=== PATIENT | female | born 2000 | race Caucasian/White ===

== ENCOUNTER 2018-03-09 00:29 | Emergency (ER) | payer MEDICAID ==
[2018-03-09] MEDS ORDERED: IBUPROFEN 600 MG TABLET PO STA (00:45)
--- NOTE | 2018-03-09 00:48 | ED Physician Documentation ---
PD HPI UPPER EXT INJURY - Stated complaint Stated Complaint: RT SHOULDER/BICEP PX - Chief complaint Chief Complaint: Ext Problem - History obtained from History obtained from: Patient, Family - History of Present Illness Location: Right, Shoulder Type of injury: Twist Where injury occurred: Home Timing - onset: Today Timing - details: Abrupt onset, Still present Improved by: Rest, Immobilization Worsened by: Moving Associated symptoms: No: Weakness, Numbness, Tingling Contributing factors: No: Anticoagulated, Prior ortho surgery Similar symptoms before: Work up / diagnostics Recently seen: Not recently seen - Additonal information Additional information: Patient is a 18 year old female who is presenting to the emergency department for right sided shoulder pain. patient states that she was reaching up for something tonight and she felt of pop. patient states that she thinks she tore her labrum when she was younger. Patient still has full rom, but some pain with movement. Review of Systems Ten Systems: 10 systems reviewed and negative Skin: denies: Rash, Lesions, Abrasion (s), Laceration (s) Musculoskeletal: reports: Extremity pain, Joint pain. denies: Extremity swelling, Joint swelling Neurologic: denies: Numbness PD PAST MEDICAL HISTORY - Present Medications Home Medications: Ambulatory Orders Medication Instructions Recorded Confirmed No Known Home Medications [No 03/09/18 03/09/18 Known Home Medications] - Allergies Allergies/Adverse Reactions: Allergies Allergy/AdvReac Type Severity Reaction Status Date / Time amoxicillin Allergy Respiratory Verified 03/09/18 00:39 PD ED PE NORMAL - Vitals Vital signs reviewed: Yes - General General: Alert and oriented X 3, No acute distress - HEENT HEENT: Atraumatic - Cardiac Cardiac: RRR - Respiratory Respiratory: No respiratory distress - Abdomen Abdomen: Non distended - Derm Derm: Normal color, Warm and dry - Neuro Neuro: Alert and oriented X 3, No motor deficit, Normal speech Eye Opening: Spontaneous PD ED PE EXPANDED - Extremities Extremities: Right shoulder (mild tenderness to palpation, full rom, 5/5 strenght with flextion, extenision pronation and supination of right arm), Motor intact, Sensory intact, Vascular intact, Tendon intact Results - Vitals Vitals: Vital Signs - 24 hr 03/09/18 00:33 Temperature 36.6 C Heart Rate 100 Respiratory 16 Rate Blood Pressure 112/87 H O2 Saturation 99 Oxygen O2 Source Room air PD MEDICAL DECISION MAKING - ED course Complexity details: reviewed old records, re-evaluated patient, considered differential, d/w patient, d/w family ED course: Patient was seen and examined at bedside. patient had no trauma and had full rom of motion so no bony abnormality was suspected, therefore x-rays were not indicated. patient was treated with ice and ibuprofen and given a sling for comfort. patient required no further inpatient work up and was stable for [facility]. Departure - Departure Disposition: 01 Home, Self Care Clinical Impression: Right shoulder strain Condition: Good Instructions: ED Sprain Shoulder Follow-Up: Eduardo Posadas MD [Provider Admit Priv/Credential] - Comments: Your symptoms today are likely secondary to a strain/sprain of your shoulder. It is unlikely fractured or dislocated. You should ice your shoulder at least 4 times a day and alternate between motrin and tylenol as needed for pain. If your symptoms persist for more than the next week you should follow up with Dr. Posadas's office, or an orthopedic of your choice.
[2018-03-09 01:04] VITALS: BP 110/72
== END 2018-03-09 01:04 | disposition home or self-care (01) ==
LOC: ED 00:29
DX: S46.911A Strain of unspecified muscle, fascia and tendon at shoulder and upper arm level, right arm, initial encounter (principal); X50.1XXA Overexertion from prolonged static or awkward postures, initial encounter
CPT/HCPCS: 99283; A9270

== ENCOUNTER 2018-04-18 00:39 | Emergency (ER) | payer MEDICAID ==
[2018-04-18] MEDS ORDERED: METOCLOPRAMIDE 10 MG/2 ML VIAL IVP STA (00:49)
[2018-04-18] MEDS ORDERED: diphenhydrAMINE INJ 50 MG/ML VIAL IVP STA (00:49)
[2018-04-18] MEDS ORDERED: SODIUM CHLORIDE 0.9% 1,000 ML IV ONE ×2 (00:49→00:50)
--- NOTE | 2018-04-18 01:27 | ED Physician Documentation ---
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 patient states that she is able to drink fluids but food makes her throw up. Patient reports that when she stands up at times she gets dizzy. Review of Systems Constitutional: denies: Fever, Chills Eyes: reports: Reviewed and negative Ears: reports: Reviewed and negative GI: reports: Nausea, Vomiting. denies: Abdominal Pain, Constipation, Diarrhea : denies: Dysuria, Frequency, Discharge, Vaginal bleeding Neurologic: denies: Generalized weakness, Focal weakness, Syncope Immunocompromised: denies: Immunocompromised PD PAST MEDICAL HISTORY - Past Medical History Past Medical History: No Musculoskeletal: Other - Past Surgical History Past Surgical History: No - Present Medications Home Medications: Ambulatory Orders Medication Instructions Recorded Confirmed Doxylamine/Pyridoxine HCl 1 each PO TID #30 tablet. 04/18/18 [Karla Jones 10-10 mg Tablet] Prenatl Vit6/Iron/FA/B12/Ca/D3 1 tab PO DAILY 04/18/18 04/18/18 [Mteryti Combo Pack] - Allergies Allergies/Adverse Reactions: Allergies Allergy/AdvReac Type Severity Reaction Status Date / Time amoxicillin Allergy Respiratory Verified 04/18/18 00:45 - Social History Does the pt smoke?: No Smoking Status: Never smoker Does the pt drink ETOH?: No Does the pt have substance abuse?: No - Immunizations Immunizations are current?: Yes - POLST Patient has POLST: No PD ED PE NORMAL - Vitals Vital signs reviewed: Yes - General General: Alert and oriented X 3, No acute distress - HEENT HEENT: Atraumatic, Moist mucous membranes - Cardiac Cardiac: RRR, No murmur - Respiratory Respiratory: No respiratory distress - Abdomen Abdomen: Non tender, Non distended - Derm Derm: Normal color, Warm and dry, No rash - Extremities Extremities: No deformity - Neuro Neuro: Alert and oriented X 3 Eye Opening: Spontaneous - Psych Psych: Normal mood Results - Vitals Vitals: Vital Signs - 24 hr 04/18/18 04/18/18 00:40 01:53 Temperature 35.9 C L Heart Rate 91 87 Respiratory 18 16 Rate Blood Pressure 109/71 110/70 O2 Saturation 100 100 Oxygen O2 Source Room air - Labs Labs: Laboratory Tests 04/18/18 01:15 Urine Color YELLOW Urine Clarity CLEAR Urine pH 6.0 Ur Specific [place] >=1.030 H Urine Protein TRACE Urine Glucose (UA) NEGATIVE Urine Ketones >=80 H Urine Occult Blood NEGATIVE Urine Nitrite NEGATIVE Urine Bilirubin NEGATIVE Urine Urobilinogen 1 (NORMAL) Ur Leukocyte Esterase NEGATIVE Ur Microscopic Review NOT INDICATED Urine Culture Comments NOT INDICATED Urine HCG, Qual POSITIVE PD MEDICAL DECISION MAKING - ED course Complexity details: reviewed old records, reviewed results, re-evaluated patient , considered differential, d/w patient ED course: Patient was seen and examined at bedside. patient was well appearing and in no acute distress. patient was offered IV fluids but refused. Patient was given oral hydration which she tolerated without difficulty. patient's urine was collected and sent. patient's diagnostics were consistent with mild dehydration but patient did not want IV hydration. Patient was tolerating PO without difficulty. patient required no further work up and was stable for discharge with outpatient follow up. Departure - Departure Disposition: 01 Home, Self Care Clinical Impression: Vomiting affecting Condition: Good Instructions: ED Preg Morning Sickness Follow-Up: Kay Rivas ARNP [Primary Care Provider] - Prescriptions: Doxylamine/Pyridoxine HCl [Karla Jones 10-10 mg Tablet] 1 each PO TID #30 tablet. Comments: Your symptoms today are being caused by dehydration. it is important that you increase your fluid intake. You should supplement the water with gatorade, pedialyte or other electrolyte solution. You should follow up with your doctor for further evaluation and care. You may return to the emergency department at any time for new, worsening or uncontrollable symptoms. Discharge Date/Time: 04/18/18 01:54
[2018-04-18 01:30] LABS: GLUCOSE, URINE (UA) NEGATIVE (NEGATIVE); KETONES,URINE (UA) >=80 mg/dL (NEGATIVE); LEUKOCYTE ESTERASE, URINE NEGATIVE (NEGATIVE); NITRITE,URINE NEGATIVE (NEGATIVE); OCCULT BLOOD,URINE NEGATIVE (NEGATIVE); PROTEIN,URINE TRACE mg/dL (NEGATIVE); UROBILINOGEN,URINE 1 (NORMAL) E.U./dL (NORMAL)
[2018-04-18 01:43] LABS: BILIRUBIN,URINE NEGATIVE (NEGATIVE); CLARITY,URINE CLEAR (CLEAR); HCG UR QUAL POSITIVE; ICTOTEST,URINE NEGATIVE
[2018-04-18 01:54] VITALS: BP 110/70
== END 2018-04-18 01:54 | disposition home or self-care (01) ==
LOC: ED 00:39
DX: O21.0 Mild hyperemesis gravidarum (principal); O99.281 Endocrine, nutritional and metabolic diseases complicating pregnancy, first trimester; E86.0 Dehydration; Z3A.09 9 weeks gestation of pregnancy
CPT/HCPCS: 81001; 81003; 81025; 87086; 99283

== ENCOUNTER 2018-08-17 18:29 | Emergency (ER) | payer MEDICAID ==
[2018-08-17] MEDS ORDERED: IBUPROFEN 600 MG TABLET PO STA (19:36)
[2018-08-17] MEDS ORDERED: ONDANSETRON ODT 4 MG TABLET TL STA (19:36)
[2018-08-17] MEDS ORDERED: LOPERAMIDE 2 MG CAPSULE PO STA (19:36)
[2018-08-17 19:37] LABS: BILIRUBIN,URINE NEGATIVE (NEGATIVE); GLUCOSE, URINE (UA) NEGATIVE (NEGATIVE); KETONES,URINE (UA) TRACE mg/dL (NEGATIVE); LEUKOCYTE ESTERASE, URINE NEGATIVE (NEGATIVE); NITRITE,URINE NEGATIVE (NEGATIVE); OCCULT BLOOD,URINE NEGATIVE (NEGATIVE); PROTEIN,URINE NEGATIVE (NEGATIVE); UROBILINOGEN,URINE 0.2 (NORMAL) E.U./dL (NORMAL)
--- NOTE | 2018-08-17 19:38 | ED Physician Documentation ---
PD HPI ABD PAIN - Stated complaint Stated Complaint: SOA/CHILLS - Chief complaint Chief Complaint: Abd Pain - History obtained from History obtained from: Patient - History of Present Illness Timing - onset: Today (She pretty abruptly became ill with nausea sweats vomiting and diarrhea today and chills. Her fianc was recently ill with a diarrheal illness. No measured fevers and no recent travel. 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 denies: Fever Nose: denies: Rhinorrhea / runny nose Throat: denies: Sore throat GI: reports: Abdominal Pain, Nausea, Vomiting, Diarrhea PD PAST MEDICAL HISTORY - Past Medical History Musculoskeletal: Other - Past Surgical History Past Surgical History: No - Present Medications Home Medications: Ambulatory Orders Medication Instructions Recorded Confirmed Loperamide [Imodium] 2 mg PO QID PRN #10 capsule 08/17/18 Ondansetron Odt [Zofran] 4 mg TL Q6H PRN #10 tablet 08/17/18 - Allergies Allergies/Adverse Reactions: Allergies Allergy/AdvReac Type Severity Reaction Status Date / Time amoxicillin Allergy Respiratory Verified 08/17/18 18:50 - Social History Does the pt smoke?: No Smoking Status: Never smoker Does the pt drink ETOH?: No Does the pt have substance abuse?: No - Immunizations Immunizations are current?: Yes - POLST Patient has POLST: No PD ED PE NORMAL - Vitals Vital signs reviewed: Yes - General General: Alert and oriented X 3, No acute distress - HEENT HEENT: Pharynx benign - Neck Neck: Supple, no meningeal sign, No bony TTP - Cardiac Cardiac: RRR, No murmur - Respiratory Respiratory: No respiratory distress, Clear bilaterally - Abdomen Abdomen: Normal bowel sounds, Soft, Non tender - Back Back: No CVA TTP - Derm Derm: No rash - Neuro Neuro: Alert and oriented X 3, Normal speech Results - Vitals Vitals: Vital Signs - 24 hr 08/17/18 18:45 Temperature 36.6 C Heart Rate 89 Respiratory 16 Rate Blood Pressure 116/72 O2 Saturation 100 Oxygen O2 Source Room air - Labs Labs: Laboratory Tests 08/17/18 19:25 Urine Color YELLOW Urine Clarity CLEAR Urine pH 6.0 Ur Specific [place] >=1.030 H Urine Protein NEGATIVE Urine Glucose (UA) NEGATIVE Urine Ketones TRACE Urine Occult Blood NEGATIVE Urine Nitrite NEGATIVE Urine Bilirubin NEGATIVE Urine Urobilinogen 0.2 (NORMAL) Ur Leukocyte Esterase NEGATIVE Ur Microscopic Review NOT INDICATED Urine Culture Comments NOT INDICATED Urine HCG, Qual NEGATIVE PD MEDICAL DECISION MAKING - ED course ED course: 18-year-old with relatively acute illness that sounds like gastroenteritis with chills, abdominal pain but benign exam, nausea and diarrhea. She is treated with Zofran, Imodium, and ibuprofen. - Sepsis Event Vital Signs: Vital Signs - 24 hr 08/17/18 18:45 Temperature 36.6 C Heart Rate 89 Respiratory 16 Rate Blood Pressure 116/72 O2 Saturation 100 Oxygen O2 Source Room air Departure - Departure Disposition: Home, Self Care Clinical Impression: Gastroenteritis Vomiting Qualifiers: Vomiting type: unspecified Vomiting Intractability: non-intractable Nausea presence: with nausea Qualified Code(s): R11.2 - Nausea with vomiting, unspecified Diarrhea Qualifiers: Diarrhea type: presumed infectious Qualified Code(s): R19.7 - Diarrhea, unspecified Condition: Good Record reviewed to determine appropriate education?: Yes Instructions: ED Gastroenteritis Viral Prescriptions: Loperamide [Imodium] 2 mg PO QID PRN #10 capsule PRN Reason: Diarrhea Ondansetron Odt [Zofran] 4 mg TL Q6H PRN #10 tablet PRN Reason: Nausea / Vomiting Comments: If not better in 12-24 hours or if pain moves to the bottom right of your abdomen please return for reevaluation. Forms: Activity restrictions
[2018-08-17 19:49] LABS: CLARITY,URINE CLEAR (CLEAR); HCG UR QUAL NEGATIVE
[2018-08-17 20:06] VITALS: BP 121/64
== END 2018-08-17 20:08 | disposition home or self-care (01) ==
LOC: ED 18:29
DX: K52.9 Noninfective gastroenteritis and colitis, unspecified (principal); Z88.1 Allergy status to other antibiotic agents
CPT/HCPCS: 81003; 81025; 99283; A9270; Q0162; 81001; 87086

== ENCOUNTER 2020-08-29 04:20 | Emergency (ER) | payer MEDICAID ==
--- NOTE | 2020-08-29 04:31 | ED Physician Documentation ---
PD HPI ABD PAIN - Stated complaint Stated Complaint: ABD PX - History obtained from History obtained from: Patient - History of Present Illness Timing - onset: Yesterday Timing - details: Gradual onset, Intermittant, Waxing and waning Pain level now: 0 Quality: Cramping Location: Other ("like a band across my lower abdomen" (per patient)) Improved by: Other (nothing) Worsened by: Other (no exacerbating factors) Associated symptoms: Nausea. No: Fever, Vomiting, Diarrhea, Constipation, Vaginal bleeding, Vaginal dc Similar symptoms before: Has not had sx before Recently seen: Not recently seen - Additional information Additional information: c/o episodic cramping pain "like a band around my lower abdomen" since yesterday morning. Nausea but no vomiting. She says it feels like labor pains she has had with previous , but she says she is not ; she says she takes BCP and that she has been having mostly regular, monthly periods with LMP 08/04/2020 Review of Systems Constitutional: reports: Reviewed and negative Cardiac: reports: Reviewed and negative Respiratory: reports: Reviewed and negative GI: reports: Abdominal Pain, Nausea. denies: Vomiting, Constipation, Diarrhea : reports: Frequency. denies: Dysuria, Now EGA Musculoskeletal: denies: Back pain PD PAST MEDICAL HISTORY - Past Medical History Past Medical History: No Musculoskeletal: Other - Past Surgical History Past Surgical History: No - Present Medications Home Medications: Ambulatory Orders Medication Instructions Recorded Confirmed Loperamide [Imodium] 2 mg PO QID PRN #10 capsule 08/17/18 Ondansetron Odt [Zofran] 4 mg TL Q6H PRN #10 tablet 08/17/18 - Allergies Allergies/Adverse Reactions: Allergies Allergy/AdvReac Type Severity Reaction Status Date / Time amoxicillin Allergy Respiratory Verified 08/29/20 04:32 - Social History Does the pt smoke?: No Smoking Status: Never smoker Does the pt drink ETOH?: No Does the pt have substance abuse?: No - Immunizations Immunizations are current?: Yes - POLST Patient has POLST: No PD ED PE NORMAL - Vitals Vital signs reviewed: Yes - General General: Alert and oriented X 3, No acute distress, Well developed/nourished - HEENT HEENT: Moist mucous membranes - Neck Neck: Supple, no meningeal sign - Cardiac Cardiac: RRR, No murmur - Respiratory Respiratory: No respiratory distress, Clear bilaterally - Abdomen Abdomen: Soft, Non tender - Back Back: No CVA TTP - Derm Derm: Normal color, Warm and dry - Extremities Extremities: No edema PD ED PE EXPANDED - Abdomen Abdomen: Other (distention with palpable, firm, nontender mass from pelvis to above umbilicus s/o advanced (third trimester) ) Results - Vitals Vitals: Vital Signs - 24 hr 08/29/20 08/29/20 08/29/20 04:30 04:53 05:35 Temperature 36.6 C Heart Rate 95 96 97 Respiratory 16 16 16 Rate Blood Pressure 130/96 H 114/86 H 122/103 H O2 Saturation 98 98 99 08/29/20 05:55 Temperature Heart Rate 84 Respiratory 18 Rate Blood Pressure 106/74 O2 Saturation 99 Oxygen O2 Source Room air - Labs Labs: Laboratory Tests 08/29/20 08/29/20 04:20 04:20 Urine Color YELLOW Urine Clarity CLEAR Urine pH 7.0 Ur Specific [place] 1.020 1.020 Urine Protein NEGATIVE Urine Glucose (UA) NEGATIVE Urine Ketones 40 H Urine Occult Blood SMALL H Urine Nitrite NEGATIVE Urine Bilirubin NEGATIVE Urine Urobilinogen 0.2 (NORMAL) Ur Leukocyte Esterase TRACE H Urine RBC 6-10 H Urine WBC 4-5 Ur Squamous Epith Cells MANY Squamous H Urine Bacteria Rare Ur Microscopic Review INDICATED Urine Culture Comments NOT INDICATED Urine HCG, Qual POSITIVE - Rads (name of study) pelvic US Radiology: Prelim report reviewed, See rad report PD MEDICAL DECISION MAKING - ED course Complexity details: reviewed results, re-evaluated patient, considered differential, d/w patient ED course: Patient arrives c/o lower abdominal cramping pain that are similar to labor pains she had with previous delivery, but strongly denies . She says she is sexually active but that she takes oral BCP and has been having monthly periods, most recently 08/04/2020. She is found to be approximately 38 weeks on bedside US and thus transferred to +D after I discussed the case with Dr. Garcia Departure - Departure Disposition: ED Transfer to [facility] Clinical Impression: Active labor at term Condition: Good Discharge Date/Time: 08/29/20 05:55
[2020-08-29 04:42] LABS: BILIRUBIN,URINE NEGATIVE (NEGATIVE); CLARITY,URINE CLEAR (CLEAR); GLUCOSE, URINE (UA) NEGATIVE (NEGATIVE); KETONES,URINE (UA) 40 mg/dL (NEGATIVE); LEUKOCYTE ESTERASE, URINE TRACE (NEGATIVE); NITRITE,URINE NEGATIVE (NEGATIVE); OCCULT BLOOD,URINE SMALL (NEGATIVE); PROTEIN,URINE NEGATIVE (NEGATIVE); UROBILINOGEN,URINE 0.2 (NORMAL) E.U./dL (NORMAL)
[2020-08-29 04:43] LABS: HCG UR QUAL POSITIVE
[2020-08-29 04:50] LABS: BACTERIA,URINE Rare /HPF (None Seen); SQUAMOUS EPITHELIAL CELL,UR MANY Squamous (<= Few)
[2020-08-29 06:17] VITALS: BP 106/74
--- NOTE | 2020-08-29 10:55 | Ultrasound Report ---
PROCEDURE: OB 14+ Weeks INDICATIONS: , abdominal cramping OUTSIDE/PRIOR DATING DATA: Last menstrual period (LMP): Unknown. TECHNIQUE: Real-time scanning was performed of the fetus, with image documentation and biometric measurements. COMPARISON: None. FINDINGS: General: A single living intrauterine gestation is present. Presentation: Cephalic Placenta: Placental position is anterior, without previa. Amniotic fluid index: 1.6 cm, low for gestational age. heart rate: 119 beats per minute. biometrics: Biparietal diameter: 8.8 cm corresponding to an estimated gestational age of 36 weeks 0 days Head circumference: 32.4 cm corresponding to an estimated gestational age of 36 weeks 5 days. Abdominal circumference: 33.9 cm corresponding to an estimated gestational age of 37 weeks 6 days. Femur length: 7.7 cm corresponding to an estimated gestational age of 39 weeks 2 days. Estimated gestational age from initial scan: not applicable. Composite gestational age from present scan: 37 weeks 3 days Estimated weight: 3319 g Anatomic survey: Neuro: Ventricles are non-dilated at less than 10 mm. Cisterna magna is normal at 3-11 mm. Cerebel lum is normal in size and morphology. Nuchal skin fold: Normal at less than 6 mm between 14-20 weeks gestational age. Face: Nose and lips, facial profile are normal. Spine: No evidence for spina bifida. Heart: 4-chambered heart is present, with normal ventricular outflow tracts. Diaphragm: Diaphragm is intact. Stomach: Left-sided stomach is present. Kidneys: No hydronephrosis. Normal is less than 5 mm in 2nd trimester, less than 7 mm in 3rd trimester. Cord: 3-vessel cord has orthotopic insertion. Bladder: Normal in size. Extremities: All 4 extremities identified. IMPRESSION: 1. Marked oligohydramnios with amniotic fluid index of 1.6 cm. 2. heart rate of 119 bpm. 3. Estimated weight of 3319 g. No significant discrepancy between preliminary and final report. Reviewed by: Charles Sahu on 08/29/2020 9:54 AM DENEEN Approved by: Charles Sahu on 08/29/2020 9:54 AM DENEEN Station ID: [id number]
== END 2020-08-29 05:55 | disposition home or self-care (01) ==
LOC: ED 04:20
DX: O75.82 Onset (spontaneous) of labor after 37 completed weeks of gestation but before 39 completed weeks gestation, with delivery by (planned) cesarean section (principal); Z3A.38 38 weeks gestation of pregnancy
CPT/HCPCS: 76805; 80053; 81001; 81003; 81025; 83690; 84703; 85025; 87086; 99284

== ENCOUNTER 2020-08-29 05:34 | Inpatient (IN) | payer MEDICAID ==
[2020-08-29 06:26] LABS: RUPTURE OF MEMBRANES PLUS NEGATIVE (NEGATIVE)
[2020-08-29] MEDS ORDERED: OXYTOCIN/SODIUM CHLORIDE 500 ML IV PRN ×3 (07:29→15:08)
[2020-08-29] MEDS ORDERED: OXYTOCIN 10 UNIT/ML VIAL IM PRN (07:29)
[2020-08-29] MEDS ORDERED: LIDOCAINE-MPF 1% 30 ML VIAL ID PRN (07:29)
[2020-08-29] MEDS ORDERED: CARBOPROST TROMETHAMINE 250 MCG/ML AMP IM PRN (07:29)
[2020-08-29] MEDS ORDERED: TRANEXAMIC ACID 1,000 MG in SODIUM CHLORIDE 0.9% 100ML 100 ML IV PRN (07:29)
[2020-08-29] MEDS ORDERED: METHYLERGONOVINE 0.2 MG/ML VIAL IM PRN (07:29)
[2020-08-29] MEDS ORDERED: miSOPROStoL 200 MCG TABLET BC PRN (07:29)
[2020-08-29] MEDS ORDERED: fentaNYL 100 MCG/2 ML VIAL IVP PRN (07:39)
--- NOTE | 2020-08-29 07:56 | HISTORY & PHYSICAL EXAMINATION ---
History of Present Illness - History of Present Illness HPI Comment/Other: CC: "contractions" HPI: didn't know she was , had significant cramping pain that she came into the ER with, described quality like contractions. ROS: no fever, no leaking of water, no VB PMH: chronic ZAPATA. Needle phobia. PSH: neg SH: no tobacco or drug use. Drank total of 3 alcoholic beverages this . Lives with parents and son, feels safe at home. 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 OB: . Prior at term 3y ago, uncomplicated. Medical TAB x1. FH: no malignant hyperthermia Meds: excedrine one pill 3x per week. No MVI. Allergies: amoxicillin-->unknown reaction in childhood O: AVSS Alert, tearful, anxious, grimacing with contractions Head atraumatic normocephalic EOM intact Lungs CTA bilat Cor RRR 2/6 flow murmur Abd soft, nt/nd, gravid No LE c/c/e Neuro and MSK: gait intact 8cm/+2 station with RN Category 1 NST [place] q2-4min A/P: 20yo at 37w by a femur length today with active spontaneous labor. She didn't know that she was until a few hours ago. Coping well with labor, anticipate routine labor and delivery course, will give fentanyl for pain control. GBS unknown and possible baby. Ampicillin caused unknown reaction in childhood. Will give Ancef. No care: obtain NOB labs and Utox. Considering adoption: she opts not to have baby with her in the room post delivery. She may see her baby at anytime. She would like to discuss with FOB who is not here and not answering his phone. Patient receiving lots of emotional support from our team here. Social work consult. Fetus: vertex, reassuring tracing. Full biometry not possible due to her head descent and oligohydramnios. Consider the potential for pulmonary or renal problems in baby with the oligo + chronic NSAID use (one excedrine per day, 3x per week). Will have peds at delivery. History - Past Medical History Cardiovascular: reports: None Respiratory: reports: None Neuro: reports: None Endocrine/Autoimmune: reports: None GI: reports: None CANDY DIPPER HAND: reports: None : reports: None HEENT: reports: None Psych: reports: None Musculoskeletal: reports: Other Derm: reports: None MRSA Hx?: No - POLST Patient has POLST: No Meds/Allgy - Home Medications Home Medications: Ambulatory Orders Medication Instructions Recorded Confirmed Loperamide [Imodium] 2 mg PO QID PRN #10 capsule 08/17/18 Ondansetron Odt [Zofran] 4 mg TL Q6H PRN #10 tablet 08/17/18 - Allergies Allergies/Adverse Reactions: Allergies Allergy/AdvReac Type Severity Reaction Status Date / Time amoxicillin Allergy Respiratory Verified 08/29/20 04:32
[2020-08-29 07:57] LABS: BASOPHILS # (AUTO) 0.1 10^3/uL (0.0-0.1); BASOPHILS % (AUTO) 0.4 %; EOSINOPHILS # (AUTO) 0.1 10^3/uL (0.0-0.7); EOSINOPHILS % (AUTO) 0.4 %; HGB - HEMOGLOBIN 13.2 g/dL (12.0-16.0); LYMPHOCYTES # (AUTO) 2.1 10^3/uL (1.5-3.5); LYMPHOCYTES % (AUTO) 14.5 %; MEAN CORPUSCULAR HEMOGLOBIN 28.2 pg (27.0-31.0); MEAN CORPUSCULAR VOLUME 85.5 fL (81.0-99.0); MEAN PLATELET VOLUME 11.6 fL (7.9-10.8); MONOCYTES # (AUTO) 0.7 10^3/uL (0.0-1.0); MONOCYTES % (AUTO) 4.9 %; NEUTROPHILS # (AUTO) 11.1 10^3/uL (1.5-6.6); NEUTROPHILS % (AUTO) 78.3 %; PLT - PLATELET COUNT 226 10^3/uL (130-450); RED BLOOD COUNT 4.68 10^6/uL (4.20-5.40); RED CELL DISTRIBUTION WIDTH 13.7 % (12.0-15.0); WHITE BLOOD COUNT 14.2 x10^3/uL (4.8-10.8)
[2020-08-29] MEDS ORDERED: LACTATED RINGERS 1,000 ML IV SCH (08:00)
[2020-08-29] MEDS ORDERED: ceFAZolin 2 GM in SODIUM CHLORIDE 0.9% 100ML 100 ML IV ONE (08:00)
[2020-08-29 08:17] LABS: MUDS CUTOFF CONCENTRATIONS CUTOFF CONC BELOW:
[2020-08-29 08:25] LABS: BILIRUBIN,URINE NEGATIVE (NEGATIVE); GLUCOSE, URINE (UA) NEGATIVE (NEGATIVE); KETONES,URINE (UA) >=80 mg/dL (NEGATIVE); LEUKOCYTE ESTERASE, URINE NEGATIVE (NEGATIVE); NITRITE,URINE NEGATIVE (NEGATIVE); OCCULT BLOOD,URINE NEGATIVE (NEGATIVE); PROTEIN,URINE NEGATIVE (NEGATIVE); UROBILINOGEN,URINE 0.2 (NORMAL) E.U./dL (NORMAL)
--- NOTE | 2020-08-29 08:25 | PROVIDER PROGRESS NOTE ---
Objective - Vital Signs/Intake & Output Vital Signs: Vital Signs x48h Temp Pulse Resp BP Pulse Ox 08/29/20 06:30 99.1 F 92 18 99/70 98 08/29/20 05:53 99.1 F 92 18 98 - Lab Results Fish Bones: 08/29/20 07:40 Other Labs: Lab Results x24hrs 08/29/20 08/29/20 Range/Units 07:40 05:57 WBC 14.2 H (4.8-10.8) x10^3/uL RBC 4.68 (4.20-5.40) 10^6/uL Hgb 13.2 (12.0-16.0) g/dL Hct 40.0 (37.0-47.0) % MCV 85.5 (81.0-99.0) fL MCH 28.2 (27.0-31.0) pg MCHC 33.0 (32.0-36.0) g/dL RDW 13.7 (12.0-15.0) % Plt Count 226 (130-450) 10^3/uL MPV 11.6 H (7.9-10.8) fL Neut # (Auto) 11.1 H (1.5-6.6) 10^3/uL Lymph # (Auto) 2.1 (1.5-3.5) 10^3/uL [place] # (Auto) 0.7 (0.0-1.0) 10^3/uL Eos # (Auto) 0.1 (0.0-0.7) 10^3/uL Baso # (Auto) 0.1 (0.0-0.1) 10^3/uL Absolute Nucleated RBC 0.00 x10^3/uL Nucleated RBC % 0.0 /100WBC Membranes Rupture NEGATIVE (NEGATIVE)
[2020-08-29 08:31] LABS: AMPHETAMINE SCREEN,URINE NEGATIVE (NEGATIVE); BENZODIAZEPINES SCREEN, URINE NEGATIVE (NEGATIVE); CLARITY,URINE CLEAR (CLEAR); COCAINE SCREEN URINE NEGATIVE (NEGATIVE); METHADONE SCREEN, URINE NEGATIVE (NEGATIVE); METHAMPHETAMINES SCREEN, URINE NEGATIVE (NEGATIVE); OPIATE SCREEN, URINE NEGATIVE (NEGATIVE); OXYCODONE SCREEN, URINE NEGATIVE (NEGATIVE); PROPOXYPHENE SCREEN, URINE NEGATIVE (NEGATIVE); TRICYCLIC ANTIDEPRESSANT,URINE NEGATIVE (NEGATIVE)
[2020-08-29] MEDS ORDERED: SODIUM CHLORIDE FLUSH 0.9% 10 ML SYRINGE IVP SCH (09:00)
[2020-08-29] MEDS: SODIUM CHLORIDE FLUSH 0.9% 10 ML SYRINGE IVP PRN ×2 (09:04→15:23)
--- NOTE | 2020-08-29 09:32 | PROVIDER PROGRESS NOTE ---
Subjective - Subjective Subjective: Spoke with FOB, they would like to adopt out. Has decided not to see/hold, not to know gender. Normal CBC, Rh+, Utox neg SVE 9cm, contractions irregular, will start pitocin for augmentation. Anticipate . Peds aware. Social work in room. Objective - Vital Signs/Intake & Output Vital Signs: Vital Signs x48h Temp Pulse Resp BP Pulse Ox 08/29/20 06:30 99.1 F 92 18 99/70 98 08/29/20 05:53 99.1 F 92 18 9970 98 - Lab Results Fish Bones: 08/29/20 07:40 Other Labs: Lab Results x24hrs 08/29/20 08/29/20 08/29/20 Range/Units 07:40 07:40 06:11 WBC 14.2 H (4.8-10.8) x10^3/uL RBC 4.68 (4.20-5.40) 10^6/uL Hgb 13.2 (12.0-16.0) g/dL Hct 40.0 (37.0-47.0) % MCV 85.5 (81.0-99.0) fL MCH 28.2 (27.0-31.0) pg MCHC 33.0 (32.0-36.0) g/dL RDW 13.7 (12.0-15.0) % Plt Count 226 (130-450) 10^3/uL MPV 11.6 H (7.9-10.8) fL Neut # (Auto) 11.1 H (1.5-6.6) 10^3/uL Lymph # (Auto) 2.1 (1.5-3.5) 10^3/uL [place] # (Auto) 0.7 (0.0-1.0) 10^3/uL Eos # (Auto) 0.1 (0.0-0.7) 10^3/uL Baso # (Auto) 0.1 (0.0-0.1) 10^3/uL Absolute Nucleated RBC 0.00 x10^3/uL Nucleated RBC % 0.0 /100WBC Urine Color YELLOW Urine Clarity CLEAR (CLEAR) Urine pH 6.0 (5.0-7.5) PH Ur Specific [place] 1.020 (1.002-1.030) Urine Protein NEGATIVE (NEGATIVE) mg/dL Urine Glucose (UA) NEGATIVE (NEGATIVE) mg/dL Urine Ketones >=80 H (NEGATIVE) mg/dL Urine Occult Blood NEGATIVE (NEGATIVE) Urine Nitrite NEGATIVE (NEGATIVE) Urine Bilirubin NEGATIVE (NEGATIVE) Urine Urobilinogen 0.2 (NORMAL) (NORMAL) E.U./dL Ur Leukocyte Esterase NEGATIVE (NEGATIVE) Ur Microscopic Review NOT INDICATED Urine Culture Comments NOT INDICATED Membranes Rupture (NEGATIVE) Urine Opiates Screen (NEGATIVE) Ur Oxycodone Screen (NEGATIVE) Urine Methadone Screen (NEGATIVE) Ur Propoxyphene Screen (NEGATIVE) Ur Barbiturates Screen (NEGATIVE) Ur Tricyclics Screen (NEGATIVE) Ur Phencyclidine Scrn (NEGATIVE) Ur Amphetamine Screen (NEGATIVE) U Methamphetamines Scrn (NEGATIVE) U Benzodiazepines Scrn (NEGATIVE) Urine Cocaine Screen (NEGATIVE) U Cannabinoids Screen (NEGATIVE) Blood Type A POSITIVE Antibody Screen NEGATIVE 08/29/20 08/29/20 Range/Units 06:11 05:57 WBC (4.8-10.8) x10^3/uL RBC (4.20-5.40) 10^6/uL Hgb (12.0-16.0) g/dL Hct (37.0-47.0) % MCV (81.0-99.0) fL MCH (27.0-31.0) pg MCHC (32.0-36.0) g/dL RDW (12.0-15.0) % Plt Count (130-450) 10^3/uL MPV (7.9-10.8) fL Neut # (Auto) (1.5-6.6) 10^3/uL Lymph # (Auto) (1.5-3.5) 10^3/uL [place] # (Auto) (0.0-1.0) 10^3/uL Eos # (Auto) (0.0-0.7) 10^3/uL Baso # (Auto) (0.0-0.1) 10^3/uL Absolute Nucleated RBC x10^3/uL Nucleated RBC % /100WBC Urine Color Urine Clarity (CLEAR) Urine pH (5.0-7.5) PH Ur Specific [place] (1.002-1.030) Urine Protein (NEGATIVE) mg/dL Urine Glucose (UA) (NEGATIVE) mg/dL Urine Ketones (NEGATIVE) mg/dL Urine Occult Blood (NEGATIVE) Urine Nitrite (NEGATIVE) Urine Bilirubin (NEGATIVE) Urine Urobilinogen (NORMAL) E.U./dL Ur Leukocyte Esterase (NEGATIVE) Ur Microscopic Review Urine Culture Comments Membranes Rupture NEGATIVE (NEGATIVE) Urine Opiates Screen NEGATIVE (NEGATIVE) Ur Oxycodone Screen NEGATIVE (NEGATIVE) Urine Methadone Screen NEGATIVE (NEGATIVE) Ur Propoxyphene Screen NEGATIVE (NEGATIVE) Ur Barbiturates Screen NEGATIVE (NEGATIVE) Ur Tricyclics Screen NEGATIVE (NEGATIVE) Ur Phencyclidine Scrn NEGATIVE (NEGATIVE) Ur Amphetamine Screen NEGATIVE (NEGATIVE) U Methamphetamines Scrn NEGATIVE (NEGATIVE) U Benzodiazepines Scrn NEGATIVE (NEGATIVE) Urine Cocaine Screen NEGATIVE (NEGATIVE) U Cannabinoids Screen NEGATIVE (NEGATIVE) Blood Type Antibody Screen
[2020-08-29] MEDS ORDERED: OXYTOCIN/SODIUM CHLORIDE 500 ML IV SCH (10:00)
[2020-08-29] MEDS ORDERED: diphenhydrAMINE 25 MG CAPSULE PO PRN (10:20)
[2020-08-29] MEDS ORDERED: WITCH HAZEL/GLYCERIN 1 PAD TOP PRN (10:20)
[2020-08-29] MEDS ORDERED: ONDANSETRON ODT 4 MG TABLET TL PRN (10:20)
[2020-08-29] MEDS ORDERED: HYDROCORTISONE 1% CREAM 28 GM TUBE PR PRN (10:20)
--- NOTE | 2020-08-29 10:25 | DELIVERY NOTE ---
Delivery Note - Labor Labor: positive: Spontaneous - Delivery Method Delivery Method: positive: Spontaneous vaginal delivery - Presentation Presentation: positive: Vertex - Nuchal Cord Nuchal Cord: positive: None - Amniotic Fluid Description Amniotic Fluid Description: positive: Clear - Episiotomy Type Episiotomy Type: positive: None - Laceration Laceration: positive: None - Delivery Outcome Delivery Outcome: positive: Livebirth - sex: positive: Male - Cord Cord: positive: 3 vessels - Placenta Placenta: positive: Intact, Spontaneous - Estimated Blood Loss Estimated Blood Loss (in cc): 250 - Post Delivery Events Post Delivery Events: positive: Other (Planning to adopt baby out. Patient did not see baby, wanted to know gender. Baby brought to nursery for transition assessment and ongoing care.) - Delivery Comments (Free Text/Narrative) Delivery Comments (Free Text/Narrative): didn't know she was until she arrived in the ER with abdominal pain a few hours prior to delivery. Was composed and thoughtful throughout her labor. Social work involved as she and her partner are wanting to adopt out. Possible discharge at 8h if stable.
[2020-08-29] MEDS: KETOROLAC 30 MG/ML VIAL IVP PRN ×2 (10:41→17:30)
[2020-08-29] MEDS: ACETAMINOPHEN 500 MG TABLET PO SCH ×2 (10:41→19:50)
[2020-08-29] MEDS: DOCUSATE SODIUM 100 MG CAPSULE PO SCH ×2 (10:41→21:44)
--- NOTE | 2020-08-29 14:54 | Discharge Plan ---
Discharge Plan Problem Reviewed?: Yes Disposition: Home, Self Care Condition: Good Diet: Regular Activity Restrictions: Nothing in the vagina Shower Restrictions: No No Smoking: If you smoke, Please STOP! Call for help. Follow-up with: Lou Garcia MD [Provider Admit Priv/Credential] - (This Monday at 0845--MD will arrange appointment)
[2020-08-29] MEDS ORDERED: METHYLERGONOVINE 0.2 MG/ML VIAL IM STA (14:59)
[2020-08-29] MEDS ORDERED: fentaNYL 100 MCG/2 ML VIAL IVP STA (15:16)
[2020-08-29 20:23] LABS: TRICHOMONAS VAGINALIS DNA NEGATIVE (NEGATIVE)
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
[2020-08-29 22:43] VITALS: BP 124/80
--- NOTE | 2020-08-29 23:42 | Labor Flowsheet ---
Labor Flowsheet Datetime Report Generated by CPN: 08/29/2020 23:42 Datetime: 08/29/2020 22:19 VITAL SIGNS NBP Sys/Marianne/Mean (mmHg): 124 : 80 : 89 Pulse: 92 SpO2 (%): 100 Datetime: 08/29/2020 11:45 Pain Presence: Intermittent Pain Type: Cramping Pain Location: Abdomen Datetime: 08/29/2020 11:30 PAIN Pain Scale: 5 Datetime: 08/29/2020 09:59 Respirations: 20 Temperature (C): 37.2 Datetime: 08/29/2020 09:53 Stage of : Recovery Datetime: 08/29/2020 09:45 UTERINE ACTIVITY Monitor Mode: External Frequency (min): 1.5-2 Quality: Strong Resting Tone (Palpate): Relaxed Contraction Comments: Pushing contractions ASSESSMENT A Monitor Mode: Telemetry FHR Baseline Rate : 125 Variability: Moderate 6-25 bpm Comments: Poor tracing throughout due to maternal position while pushing PATIENT CARE Oxygen Method: Room Air Datetime: 08/29/2020 09:33 STAGE 2 Pushing: Urge to Push Pushing Position: Pushing with Contractions; Pushing Lithotomy Pushing Progress: Descent with Pushing Datetime: 08/29/2020 09:32 VAGINAL EXAM Dilatation (cm): 10.0 Exam by: Dr. Jose Datetime: 08/29/2020 09:30 Duration (sec): 60-70 Pattern: Normal: <= 5 Contractions in 10 Minutes Accelerations: 15X15 Decelerations: Early Category: Category I Datetime: 08/29/2020 09:29 COMMUNICATION Communication: Provider at Bedside Communication Comments: Dr. Garcia at bedside; patient stated she feels like she is starting to push Datetime: 08/29/2020 09:25 MEDICATIONS Pitocin (milliunits): Started @ 1 Datetime: 08/29/2020 09:04 Analgesics/Sedatives: Fentanyl (mcg) @ 100 Datetime: 08/29/2020 08:04 LaborFlag: Labor
--- NOTE | 2020-08-30 12:41 | OPERATIVE REPORT ---
Operative Report - General Admit Date: 08/29/20 Procedure Performed: Preop: FTD Postop: CPD Procedure: primary LTCS Surg: Jose Assist: rita Anesth: epidural ebl 500cc uop 100cc ivf 1100cc complic none dispo delivery room specimens cord blood for typing findings male 8, mec. Normal maternal anatomy.
[2020-08-31 15:46] LABS: HIV AG/AB 4TH GEN NON-REACTIVE (NON-REACTIVE)
[2020-08-31 19:30] LABS: HEPATITIS B SURFACE ANTIGEN NON-REACTIVE (NON-REACTIVE)
[2020-08-31 19:46] LABS: HEPATITIS C ANTIBODY NON-REACTIVE (NON-REACTIVE)
[2020-09-01 19:25] LABS: TREPONEMA AB IGG NEGATIVE
== END 2020-08-29 23:29 | disposition home or self-care (01) | DRG 807 ==
LOC: WFO 05:34 → FBP 05:40 → WFO 07:28 → FBP 07:29 → UNDOADMIN 07:29
PROVIDERS: ADMIT Obstetrics & Gynecology; ATTEND Obstetrics & Gynecology
PROC: 10E0XZZ Delivery of Products of Conception, External Approach (ICD-10-PCS; principal; 2020-08-29)
DX: O99.344 Other mental disorders complicating childbirth (principal); Z37.0 Single live birth; F43.10 Post-traumatic stress disorder, unspecified; Z3A.37 37 weeks gestation of pregnancy; Z59.9 Problem related to housing and economic circumstances, unspecified
CPT/HCPCS: 36415; 80306; 81003; 84112; 85025; 86762; 86780; 86787; 86803; 86850; 86900; 86901; 87081; 87340; 87389; 87491; 87591; 87661; 87797; 99212; A9270; J2210; J7120; 81001; 87086

== ENCOUNTER 2020-11-10 18:59 | Emergency (ER) | payer MEDICAID ==
[2020-11-10 19:10] VITALS: BP 142/81
[2020-11-10] MEDS ORDERED: ONDANSETRON 4 MG/2 ML VIAL IVP STA (19:23)
[2020-11-10] MEDS ORDERED: SODIUM CHLORIDE 0.9% 1,000 ML IV STA (19:23)
[2020-11-10] MEDS ORDERED: LOPERAMIDE 2 MG CAPSULE PO STA (19:23)
== END 2020-11-10 19:10 | disposition left against medical advice (07) ==
LOC: ED 18:59
DX: Z53.21 Procedure and treatment not carried out due to patient leaving prior to being seen by health care provider (principal)
CPT/HCPCS: 80053; 83690; 85025

== ENCOUNTER 2020-11-12 08:00 | Outpatient (CLI) | payer MEDICAID | END 2020-11-12 23:59 | disposition home or self-care (01) | LOC: LAB.N 08:00 | PROVIDERS: ATTEND Physician Assistant Medical | DX: K52.9 Noninfective gastroenteritis and colitis, unspecified (principal); Z20.828 Contact with and (suspected) exposure to other viral communicable diseases ==

== ENCOUNTER 2020-11-24 08:00 | Outpatient (CLI) | payer MEDICAID ==
[2020-11-24 18:17] LABS: BILIRUBIN,URINE NEGATIVE (NEGATIVE); GLUCOSE, URINE (UA) NEGATIVE (NEGATIVE); KETONES,URINE (UA) NEGATIVE (NEGATIVE); LEUKOCYTE ESTERASE, URINE NEGATIVE (NEGATIVE); NITRITE,URINE NEGATIVE (NEGATIVE); OCCULT BLOOD,URINE NEGATIVE (NEGATIVE); PROTEIN,URINE NEGATIVE (NEGATIVE); UROBILINOGEN,URINE 0.2 (NORMAL) E.U./dL (NORMAL)
[2020-11-24 18:20] LABS: CLARITY,URINE CLEAR (CLEAR)
[2020-11-24 18:27] LABS: BASOPHILS # (AUTO) 0.1 10^3/uL (0.0-0.1); BASOPHILS % (AUTO) 0.8 %; EOSINOPHILS # (AUTO) 0.2 10^3/uL (0.0-0.7); EOSINOPHILS % (AUTO) 2.3 %; HCT - HEMATOCRIT 41.2 % (37.0-47.0); HGB - HEMOGLOBIN 12.6 g/dL (12.0-16.0); LYMPHOCYTES # (AUTO) 2.6 10^3/uL (1.5-3.5); LYMPHOCYTES % (AUTO) 40.6 %; MEAN CORPUSCULAR HEMOGLOBIN 25.6 pg (27.0-31.0); MEAN CORPUSCULAR HGB CONC 30.6 g/dL (32.0-36.0); MEAN CORPUSCULAR VOLUME 83.7 fL (81.0-99.0); MEAN PLATELET VOLUME 10.4 fL (7.9-10.8); MONOCYTES # (AUTO) 0.4 10^3/uL (0.0-1.0); MONOCYTES % (AUTO) 6.8 %; NEUTROPHILS # (AUTO) 3.2 10^3/uL (1.5-6.6); NEUTROPHILS % (AUTO) 49.3 %; PLT - PLATELET COUNT 315 10^3/uL (130-450); RED BLOOD COUNT 4.92 10^6/uL (4.20-5.40); RED CELL DISTRIBUTION WIDTH 13.4 % (12.0-15.0); WHITE BLOOD COUNT 6.5 x10^3/uL (4.8-10.8)
[2020-11-24 18:45] LABS: BACTERIA,URINE Rare /HPF (None Seen); RBC,URINE None Seen /HPF (0-5); SQUAMOUS EPITHELIAL CELL,UR RARE Squamous (<= Few); WBC,URINE 0-3 /HPF (0-5)
[2020-11-24 19:03] LABS: ALBUMIN 4.5 g/dL (3.2-5.5); ALBUMIN/GLOBULIN RATIO 1.4 (1.0-2.2); BILIRUBIN,TOTAL 0.6 mg/dL (0.2-1.0); CALCIUM 9.5 mg/dL (8.5-10.3); CREATININE 0.7 mg/dL (0.4-1.0); POTASSIUM 3.8 mmol/L (3.5-5.0); TOTAL PROTEIN 7.7 g/dL (6.7-8.2)
== END 2020-11-24 23:59 | disposition home or self-care (01) ==
LOC: LAB.N 08:00
PROVIDERS: ATTEND Family Medicine
DX: R10.9 Unspecified abdominal pain (principal)
CPT/HCPCS: 36415; 80053; 81001; 81003; 82150; 83690; 85025; 87086

== ENCOUNTER 2020-11-30 13:14 | Outpatient (CLI) | payer MEDICAID ==
--- NOTE | 2020-11-30 13:54 | XRAY Report ---
PROCEDURE: Hips 2V BILAT INDICATIONS: CHRONIC HIP PAIN TECHNIQUE: 3 views of the hip were acquired. COMPARISON: None. FINDINGS: Bones: No fractures or dislocations. No suspicious bony lesions. The visualized pelvic ring appear s intact. Soft tissues: No suspicious soft tissue calcifications or masses. IMPRESSION: Unremarkable examination. If the patient's pain or other symptoms persist, consider further evaluatio n with MRI. Reviewed by: Cameron Moreno MD on 11/30/2020 1:52 PM PST Approved by: Cameron Moreno MD on 11/30/2020 1:52 PM PST Station ID: [id number]
== END 2020-11-30 13:15 | disposition home or self-care (01) ==
LOC: DI 13:14
PROVIDERS: ATTEND Family Medicine
DX: M25.559 Pain in unspecified hip (principal)
CPT/HCPCS: 73521

== ENCOUNTER 2020-12-05 07:15 | Outpatient (CLI) | payer MEDICAID ==
--- NOTE | 2020-12-05 11:46 | Ultrasound Report ---
PROCEDURE: Abdomen Complete INDICATIONS: ABDOMINAL DISCOMFORT TECHNIQUE: Real-time scanning was performed of the abdominal and retroperitoneal organs, with image documentatio n. COMPARISON: None. FINDINGS: Liver: Liver is normal in size and heterogeneous in echotexture. Gallbladder: Unremarkable Biliary ducts: Intrahepatic bile ducts are non-dilated. Extrahepatic bile duct caliber measures 3 m m. Normal is 6-7 mm or less in diameter, or 10 mm or less post-cholecystectomy. Pancreas: Visualized portions of the pancreas are sonographically normal. Spleen: Spleen is normal in size and homogeneous in echotexture. Kidneys: Kidneys are normal in size and echotexture. Right kidney measures 10.4 cm long; left kidne y measures 9.9 cm long. No hydronephrosis or nephrolithiasis. No solid masses. Aorta: Visualized aorta is normal in caliber at less than 3 cm. Iliacs: Proximal common iliac arteries are normal in caliber at less than 2.5 cm. IVC: Intrahepatic inferior vena cava is patent. Miscellaneous: No free abdominal fluid. IMPRESSION: Coarsely echogenic liver suggesting hepatic steatosis/diffuse hepatocellular disease. Please correlat e with LFTs. Normal appearance of the gallbladder Reviewed by: Cameron Moreno MD on 12/05/2020 11:45 AM PST Approved by: Cameron Moreno MD on 12/05/2020 11:45 AM PST Station ID: [id number]
--- OUTSIDE RECORDS SUMMARY | 2020-12-09 01:50 | EXTERNAL MEDICAL SUMMARY RPT | Continuity of Care Document ---
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 2018 00:29 STRAIN UNSP MUSC/FASC/TEND AT [facility] SHLDR/UP ARM, RIGHT ARM, INIT 2018 00:29 OVEREXERTION FROM PROLONGED [facility] STATIC OR AWKWARD POSTURES, INIT 2018-04-18 00:39 DEHYDRATION [facility] 2018-04-18 00:39 MILD HYPEREMESIS GRAVIDARUM [facility] 2018-04-18 00:39 ENDO, NUTRITIONAL AND METAB [facility] DISEASES COMP PREG, FIRST TRI 2018-04-18 00:39 NAUSEA WITH VOMITING, [facility] [place] UNSPECIFIED 2018-04-18 00:39 9 WEEKS GESTATION OF [facility] 2018-08-17 18:29 NONINFECTIVE GASTROENTERITIS AND [facility] COLITIS, UNSPECIFIED 2018-08-17 18:29 SHORTNESS OF BREATH Formerly [facility] 2018-08-17 18:29 ALLERGY STATUS TO OTHER [facility] ANTIBIOTIC AGENTS STATUS 2020-08-29 04:20 ONSET LABOR 37-39 WEEKS, W DEL [facility] BY (PLANNED) SECTION 2020-08-29 04:20 OTH DISEASES AND CONDITIONS [facility] COMPLICATING 2020-08-29 04:20 38 WEEKS GESTATION OF [facility] 2020-08-29 07:29 POST-TRAUMATIC STRESS DISORDER, [facility] UNSPECIFIED 2020-08-29 07:[address] [facility] COMPLICATING CHILDBIRTH 2020-08-29 07:29 SINGLE LIVE [facility] 2020-08-29 07:29 37 WEEKS GESTATION OF [facility] 2020-08-29 07:29 PROBLEM RELATED TO HOUSING AND [facility] ECONOMIC CIRCUMSTANCES, UNSP 2020-09-29 00:00:00 Health-related behavior [facility] 2020-09-29 00:00:00 Tobacco [facility] and exposure [facility] 2020-09-29 00:00:00 Exercise [facility] 2020-09-29 00:00:00 Never smoker [facility] 2020-09-29 00:00:00 Alcohol use [facility] 2020-09-29 00:00:00 Tobacco smoking status [facility] 2020-09-29 00:00:00 Total score? [facility] 2020-10-06 00:00:00 [facility] 2020-10-06 00:00:00 care [facility] 2020-10-06 00:00:00 Health-related behavior [facility] 2020-10-06 00:00:00 Tobacco [facility] and exposure [facility] 2020-10-06 00:00:00 Exercise [facility] 2020-10-06 00:00:00 Never smoker [facility] 2020-10-06 00:00:00 Alcohol use [facility] 2020-10-06 00:00:00 Tobacco smoking status NHIS [facility] 2020-10-16 00:00:00 Health-related behavior [facility] 2020-10-16 00:00:00 Tobacco [facility] and exposure [facility] 2020-10-16 00:00:00 Exercise [facility] 2020-10-16 00:00:00 Never smoker [facility] 2020-10-16 00:00:00 Alcohol use [facility] 2020-10-16 00:00:00 Tobacco smoking status KSIS [facility] 2020-10-16 00:00:00 Total score? [facility] 2020-11-10 18:59 PROC/TRTMT NOT CRD OUT D/T PT LV [facility] BEF SEEN BY [facility] 2020-11-12 00:00 NONINFECTIVE GASTROENTERITIS AND [facility] COLITIS, UNSPECIFIED 2020-11-12 00:00:00 Other [facility] colitis 2020-11-12 00:00:00 COVID19 Testing [facility] 2020-11-12 00:00:00 Noninfective gastroenteritis and id [facility] Primary [facility] colitis, unspecified [facility] 2020-11-12 00:00:00 [facility] 2020-11-12 00:00:00 Tobacco [facility] and exposure [facility] 2020-11-12 00:00:00 Exercise [facility] 2020-11-12 00:00:00 Never smoker [facility] 2020-11-12 00:00:00 Acute [facility]itis [facility] 2020-11-12 00:00:00 Alcohol use [facility] 2020-11-12 00:00:00 Tobacco smoking status KSIS [facility] 2020-11-12 00:00:00 Total score? [facility] 2020-11-12 08:00 NONINFECTIVE GASTROENTERITIS AND [facility] COLITIS, UNSPECIFIED 2020-11-24 00:00 UNSPECIFIED [facility] 00:00:00 Abdominal pain, [facility] 2020-11-24 00:00:00 Personal history of other mental [facility] Primary Care disorders [facility] 2020-11-24 00:00:00 XR HIPS BILATERAL 2 VIEWS A/P Formerly [facility], [facility] Primary Care PELVIS [facility] 2020-11-24 00:00:00 US ABDOMINAL COMPLETE [facility] 2020-11-24 00:00:00 COMPREHENSIVE METABOLIC PANEL Formerly [facility] Primary Care [facility] 2020-11-24 00:00:00 Urinalysis with Microscopic [facility] Ex[facility], Culture in Indicated [facility] 2020-11-24 00:00:00 Amylase [facility] inoc[facility] Care [facility] 2020-11-24 00:00:00 Lipase [facility] Care [facility] 2020-11-24 00:00:00 CBC W/Diff/Plt [facility] 2020-11-24 00:00:00 Unspecified abdominal pain [facility] 2020-11-24 00:00:00 Dysphagia, unspecified [facility] 2020-11-24 00:00:00 Personal history of other mental [facility] Primary Care and behavioral disorders [facility] 2020-11-24 00:00:00 Health-related behavior [facility] 2020-11-24 00:00:00 Tobacco use and exposure [facility] 2020-11-24 00:00:00 [facility] 2020-11-24 00:00:00 Never smoker [facility] Care [facility] 2020-11-24 00:00:00 Dysphagia [facility] Care [facility] 2020-11-24 00:00:00 History of clinical finding in [facility] subject [facility] 2020-11-24 00:00:00 [facility] 2020-11-24 00:00:00 [facility] 2020-11-24 00:00:00 Tobacco smoking status NHIS [facility] 2020-11-24 00:00:00 Total score? [facility] 2020-11-24 08:00 UNSPECIFIED ABDOMINAL PAIN [facility] Allergies date description facility ADHESIVE \T\ TAPE [facility] IBUPROFEN [facility] SULFAMETHOXAZOLE-TRIMETHOPRIM [facility] NO KNOWN ENVIRONMENTAL ALLERGIES [facility] NSAIDS [facility] SULFA ANTIBIOTICS [facility] NO ALLERGY INFORMATION AVAILABLE [facility] JOAQUÍN INHIBITORS [facility] PENICILLINS [facility] SULFA (SULFONAMIDE ANTIBIOTICS) [facility] NO KNOWN ALLERGIES [facility] LITHIUM CARBONATE [facility] MORPHINE [facility] CODEINE [facility] DYE [facility] CIPROFLOXACIN [facility] OMEPRAZOLE [facility] ENALAPRIL [facility] BEE VENOM PROTEIN (HONEY BEE) [facility] LEVETIRACETAM [facility] doxycycline [facility] penicillin V potassium [facility] amoxicillin [facility] CODEINE [facility] NO KNOWN ALLERGIES [facility] NO KNOWN ENVIRONMENTAL ALLERGIES [facility] NO KNOWN ALLERGIES [facility] METRONIDAZOLE [facility] Medications date description facility 2020-09-29 00:00:00 null [facility] 2020-09-29 00:00:00 null [facility] 2020-09-29 00:00:00 null [facility] 2020-09-29 00:00:00 null [facility] 2020-09-29 00:00:00 null [facility] 2020-09-29 00:00:00 null [facility] 2020-09-29 00:00:00 BUPROPION HCL [facility] 2020-09-29 00:00:00 OMEGA-3 FATTY ACIDS [facility] 2020-09-29 00:00:00 CHOLECALCIFEROL [facility] 2020-09-29 00:00:00 BUPROPION HCL [facility] 2020-11-12 00:00:00 null [facility] 2020-11-12 00:00:00 null [facility] 2020-11-12 00:00:00 null [facility] 2020-11-12 00:00:00 null [facility] 2020-11-12 00:00:00 LOPERAMIDE HCL [facility] 2020-11-12 00:00:00 ONDANSETRON [facility] 2020-11-12 00:00:00 [facility]ANSETRON [facility] 2020-11-12 00:00:00 LOPERAMIDE HCL [facility] Procedures date description facility 2020-09-29 00:00:00 IM or SQ Injection [facility] date description facility 2020-09-29 00:00:00 [facility]Provera [facility] date description facility 2020-09-29 00:00:00 [facility] date description facility 2020-10-06 00:00:00 POST VISIT [facility] date description facility 2020-10-06 00:00:00 [facility] date description facility 2020-10-16 00:00:00 POST VISIT [facility] date description facility 2020-10-16 00:00:00 [facility] date description facility 2020-11-24 00:00:00 XR HIPS BILATERAL 2 VIEWS A/P Former[facility] Primary Care PELVIS [facility] date description facility 2020-11-24 00:00:00 US ABDOMINAL COMPLETE [facility] date description facility 2020-11-24 00:00:00 COMPREHENSIVE METABOLIC PANEL [facility] date description facility 2020-11-24 00:00:00 Urinalysis with Microscopic [facility], Culture in Indicated [facility] date description facility 2020-11-24 00:00:00 Amylase [facility] date description facility 2020-11-24 00:00:00 Lipase [facility] date description facility 2020-11-24 00:00:00 CBC W/Diff/Plt [facility] date description facility 2020-11-24 00:00:00 [facility] Results Social History date description facility 2020-09-29 00:00:00 Never smoker [facility] date description facility 2020-10-06 00:00:00 Never smoker [facility] date description facility 2020-10-16 00:00:00 Never smoker [facility] date description facility 2020-11-12 00:00:00 Never smoker [facility] date description facility 2020-11-24 00:00:00 Never smoker [facility] Social History date description facility 2020-09-29 00:00:00 Never smoker [facility] date description facility 2020-10-06 00:00:00 Never smoker [facility] date description facility 2020-10-16 00:00:00 Never smoker [facility] date description facility 2020-11-12 00:00:00 Never smoker [facility] date description facility 2020-11-24 00:00:00 Never smoker [facility] date description facility [phone]
== END 2020-12-05 07:16 | disposition home or self-care (01) ==
LOC: DI 07:15
PROVIDERS: ATTEND Family Medicine
DX: R10.9 Unspecified abdominal pain (principal); K76.9 Liver disease, unspecified

== ENCOUNTER 2021-01-05 08:49 | Outpatient (CLI) | payer MEDICAID ==
[2021-01-05] MEDS ORDERED: SINCALIDE 5 MCG VIAL ONE (10:04)
[2021-01-05] MEDS ORDERED: SINCALIDE 1.72 MCG in SODIUM CHLORIDE 0.9% 50 ML IV ONE (11:47)
--- NOTE | 2021-01-05 11:55 | Nuclear Medicine Report ---
PROCEDURE: Hepatobiliary HIDA w/ Rx INDICATIONS: ABD DISCOMFORT RADIOPHARMACEUTICAL: 4.87 mCi Tc-99m meprofenin i.v. and 1.72 ?g sincalide i.v. TECHNIQUE: Following intravenous administration of Tc-99m meprofenin, sequential anterior abdominal images were obtained through 60 minutes. To evaluate the contractile response of the gallbladder in response to Cholecystokinin (CCK), 1.72 microgram sincalide (0.02 ?g/kg) was administered by slow int ravenous infusion approximately 30 minutes after the administration of the radiopharmaceutical. Sequ ential imaging was continued for 30 minutes after the start of CCK infusion. Gallbladder ejection fr action was calculated. COMPARISON: None. FINDINGS: Biliary scan: There is normal tracer uptake and excretion by the liver. There is normal visualizati on of the intrahepatic ducts, common bile duct, and gallbladder. There is normal tracer transit into the duodenum. Note is made of mild bile reflux into the stomach. CCK stimulation: There is normal contractile response of the gallbladder to CCK infusion. The calcu lated gallbladder ejection fraction is 92%; normal values are above 35%. IMPRESSION: 1. Normal biliary imaging study. 2. Normal contractile response of gallbladder to CCK infusion.. 3. Mild bile reflux into the stomach. Reviewed by: Melany Griffin MD on 01/05/2021 11:53 AM PST Approved by: Melany Griffin MD on 01/05/2021 11:53 AM PST Station ID: [id number]
== END 2021-01-05 08:50 | disposition home or self-care (01) ==
LOC: DI 08:49
PROVIDERS: ATTEND Physician Assistant Medical
DX: R10.9 Unspecified abdominal pain (principal)
CPT/HCPCS: 78227; J7040

== ENCOUNTER 2021-03-31 08:00 | Outpatient (CLI) | payer MEDICAID ==
[2021-04-01 22:31] LABS: CHLAMYDIA TRACHOMATIS DNA NEGATIVE (NEGATIVE); NEISSERIA GONORRHOEAE DNA NEGATIVE (NEGATIVE); TRICHOMONAS VAGINALIS DNA NEGATIVE (NEGATIVE)
== END 2021-03-31 23:59 ==
LOC: LAB.WC 08:00
PROVIDERS: ATTEND Obstetrics & Gynecology
DX: R10.2 Pelvic and perineal pain (principal); G89.29 Other chronic pain
CPT/HCPCS: 87491; 87591; 87661

== ENCOUNTER 2021-03-31 13:51 | Outpatient (CLI) | payer MEDICAID ==
--- NOTE | 2021-03-31 15:13 | Ultrasound Report ---
PROCEDURE: Pelvic w/Transvaginal INDICATIONS: CHRONIC PELVIC PAIN OF FEMALE TECHNIQUE: Real-time scanning was performed of the pelvic organs, with image documentation. Additional endovagi nal scanning was necessary due to incomplete visualization of the adnexal and endometrial structures by transabdominal scanning. COMPARISON: None. FINDINGS: No pathologic free abdominal or pelvic fluid. Uterus: Uterus is normal in size at 7.5 x 2.8 x 5 cm. The endometrium measures 3 mm in combined thi ckness. No discrete uterine fibroid is seen. No gross endometrial mass or fluid. Ovaries: Right ovary measures 3 x 2 x 1.8 cm in size with a volume of 5.6 mL. Left ovary measures 3 x 2.2 x 1.8 cm with volume of 6.5 mL. No solid appearing ovarian lesion. Left ovarian follicle measur es 12 x 9 x 6 mm in size is seen. Normal blood flow is seen in bilateral ovaries on color Doppler wing ges. IMPRESSION: 1. Unremarkable ultrasound examination of uterus and endometrium. 2. Left ovarian cyst/follicle as above. No solid appearing ovarian lesion. No evidence of ovarian tor lakeisha. Reviewed by: Cipriano Singh MD on 03/31/2021 3:12 PM PDT Approved by: Cipriano Singh MD on 03/31/2021 3:12 PM PDT Station ID: [id number]
== END 2021-03-31 13:52 | disposition home or self-care (01) ==
LOC: DI 13:51
PROVIDERS: ATTEND Obstetrics & Gynecology
DX: R10.2 Pelvic and perineal pain (principal)

== ENCOUNTER 2021-04-01 08:00 | Outpatient (CLI) | payer MEDICAID | END 2021-04-01 23:59 | disposition home or self-care (01) | LOC: LAB.R 08:00 | PROVIDERS: ATTEND Obstetrics & Gynecology | DX: R10.2 Pelvic and perineal pain (principal) | CPT/HCPCS: 87491; 87591; 87661 ==

== ENCOUNTER 2021-04-12 20:39 | Emergency (ER) | payer MEDICAID ==
--- NOTE | 2021-04-12 20:54 | ED Physician Documentation ---
PD HPI WOUND RECHECK - Stated complaint Stated Complaint: POST OP ISSUES - Chief complaint Chief Complaint: Wound - Histroy obtained from History obtained from: Patient - History of Present Illness Location: Abdomen (she is 1 1/2 weeks post op CCY done at [facility], and is feeling well. Still with steri-strips from surgery. She noted some odor of fluid at umbilicius. Called nurse advise line and advised to be seen at ER. No fever, no abd pain.) Timing - onset: Today Associated symptoms: Drainage (mild reddish.). 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 HEENT: None Psych: None Musculoskeletal: Other Derm: None - Past Surgical History Past Surgical History: No - Present Medications Home Medications: Ambulatory Orders Medication Instructions Recorded Confirmed Acetaminophen [Acetaminophen Extra 500 mg PO Q6HR 04/12/21 04/12/21 Strength] - Allergies Allergies/Adverse Reactions: Allergies Allergy/AdvReac Type Severity Reaction Status Date / Time amoxicillin Allergy Respiratory Verified 11/10/20 19:07 - Social History Does the pt smoke?: No Smoking Status: Never smoker Does the pt drink ETOH?: No Does the pt have substance abuse?: No - Immunizations Immunizations are current?: Yes - POLST Patient has POLST: No PD ED PE NORMAL - Vitals Vital signs reviewed: Yes - General General: Alert and oriented X 3, No acute distress, Well developed/nourished - Cardiac Cardiac: RRR, No murmur - Respiratory Respiratory: Clear bilaterally - Abdomen Abdomen: Normal bowel sounds, Soft, Non distended, No organomegaly, Other (post op laparoscopic wounds 3 at upper abd without any drainage nor redness/tender. The umbilical wound has tapes still in place, with some dried to wet old blood on and under them. Removed and then cleaned and the skin appears good. Bedside U/S without fluid under the skin. ) Results - Vitals Vitals: Vital Signs - 24 hr 04/12/21 20:43 Temperature 36.2 C L Heart Rate 98 Respiratory 16 Rate Blood Pressure 128/80 O2 Saturation 98 Oxygen O2 Source Room air PD MEDICAL DECISION MAKING - ED course Complexity details: considered differential (surgical tape was moist but not purulent. Once cleaned of old blood, the wound site appears good. I think it was just topical fluid with odor. Bedside U/S did not show any fluid collection under the skin. ), d/w patient Departure - Departure Disposition: 01 Home, Self Care Clinical Impression: Visit for wound check Condition: Stable Record reviewed to determine appropriate education?: Yes Follow-Up: Ignacia Hagen PA-C [Primary Care Provider] - Comments: No signs of infection at this time. I would clean the area twice daily which is soap and water and apply a light bit of antibiotic ointment. Recheck if it gets red or swollen or has further drainage. Discharge Date/Time: 04/12/21 21:22
[2021-04-12 21:05] VITALS: BP 128/80
[2021-04-12] MEDS ORDERED: MUPIROCIN 2% OINT 1 GM TOP STA (21:08)
== END 2021-04-12 21:22 | disposition home or self-care (01) ==
LOC: ED 20:39
DX: Z48.01 Encounter for change or removal of surgical wound dressing (principal); Z90.49 Acquired absence of other specified parts of digestive tract
CPT/HCPCS: 99281; 99282; A9270

== ENCOUNTER 2021-07-22 13:44 | Emergency (ER) | payer MEDICAID ==
[2021-07-22 13:53] VITALS: BP 136/69
[2021-07-22] MEDS ORDERED: ONDANSETRON ODT 4 MG TABLET TL STA (14:02)
--- NOTE | 2021-07-22 14:04 | ED Physician Documentation ---
History of Present Illness - Stated complaint Stated Complaint: VOMITING,NASAL PRESSURE - Chief complaint Chief Complaint: Heent - Additonal information Additional information: 21-year-old female presents emergency department for evaluation of 2 concerns. The first is episode of vomiting this morning. She woke up feeling well but then suddenly became nauseated and vomited. She denies that she was having any abdominal pain and felt better after vomiting but she called out to work and needs a work excuse. Past surgical history includes previous cholecystectomy. She denies any diarrhea dysuria urgency or frequency. Doubts and is on Depo-Provera. Also requesting evaluation for 1 week of bilateral frontal and maxillary sinus congestion. No drainage no fevers. No cough. She did try Shaila-Coleraine which helped somewhat. Review of Systems Constitutional: denies: Fever, Chills Eyes: reports: Reviewed and negative Ears: reports: Reviewed and negative Nose: reports: Congestion Throat: reports: Reviewed and negative Cardiac: reports: Reviewed and negative Respiratory: reports: Reviewed and negative GI: reports: Nausea, Vomiting. 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 HEENT: None Psych: None Musculoskeletal: Other Derm: None - Past Surgical History Past Surgical History: No General: Cholecystectomy - Present Medications Home Medications: Ambulatory Orders Medication Instructions Recorded Confirmed Acetaminophen [Acetaminophen Extra 500 mg PO Q6HR 04/12/21 04/12/21 Strength] Fluticasone [Flonase] 1 sprays ANSON DAILY #16 gm 07/22/21 Ondansetron Odt [Zofran] 4 mg TL Q6H PRN #10 tablet 07/22/21 - Allergies Allergies/Adverse Reactions: Allergies Allergy/AdvReac Type Severity Reaction Status Date / Time amoxicillin Allergy Respiratory Verified 07/22/21 13:53 - Social History Does the pt smoke?: No Smoking Status: Never smoker Does the pt drink ETOH?: No Does the pt have substance abuse?: No - Immunizations Immunizations are current?: Yes - POLST Patient has POLST: No PD ED PE NORMAL - General General: Alert and oriented X 3, No acute distress - HEENT HEENT: PERRL, Other (mild percussion tenderness bilateral frontal sinuses. nos welling, erythema, drainage) - Neck Neck: Supple, no meningeal sign - Cardiac Cardiac: RRR, No murmur - Respiratory Respiratory: Clear bilaterally - Abdomen Abdomen: Normal bowel sounds, Soft, Non tender, Non distended - Back Back: No CVA TTP, No spinal TTP - Derm Derm: Warm and dry - Extremities Extremities: No deformity - Neuro Neuro: Alert and oriented X 3, management planner 2-12 intact Eye Opening: Spontaneous Motor: Obeys Commands Verbal: Oriented GCS Score: 15 - Psych Psych: Normal mood Results - Vitals Vitals: Vital Signs - 24 hr 07/22/21 13:49 Temperature 36.3 C L Heart Rate 92 Respiratory 15 Rate Blood Pressure 136/69 H O2 Saturation 100 Oxygen O2 Source Room air - Labs Labs: Laboratory Tests 07/22/21 07/22/21 07/22/21 14:14 14:14 14:15 WBC 6.8 RBC 5.23 Hgb 15.0 Hct 45.3 MCV 86.6 MCH 28.7 MCHC 33.1 RDW 12.8 Plt Count 273 MPV 9.7 Neut # (Auto) 3.4 Lymph # (Auto) 2.5 Sharkey # (Auto) 0.4 Eos # (Auto) 0.3 Baso # (Auto) 0.1 Absolute Nucleated RBC 0.00 Nucleated RBC % 0.0 Sodium 138 Potassium 4.0 Chloride 106 Carbon Dioxide 22 Anion Gap 10.0 BUN 10 Creatinine 0.8 Estimated GFR (MDRD) 89 Glucose 102 H Calcium 9.7 Total Bilirubin 1.1 H AST 17 ALT 22 Alkaline Phosphatase 53 Total Protein 8.0 Albumin 5.0 Globulin 3.0 Albumin/Globulin Ratio 1.7 Lipase 32 Urine Color Urine Clarity Urine pH Ur Specific [place] Urine Protein Urine Glucose (UA) Urine Ketones Urine Occult Blood Urine Nitrite Urine Bilirubin Urine Urobilinogen Ur Leukocyte Esterase Ur Microscopic Review Urine Culture Comments Urine HCG, Qual NEGATIVE 07/22/21 14:15 WBC RBC Hgb Hct MCV MCH MCHC RDW Plt Count MPV Neut # (Auto) Lymph # (Auto) Sharkey # (Auto) Eos # (Auto) Baso # (Auto) Absolute Nucleated RBC Nucleated RBC % Sodium Potassium Chloride Carbon Dioxide Anion Gap BUN Creatinine Estimated GFR (MDRD) Glucose Calcium Total Bilirubin AST ALT Alkaline Phosphatase Total Protein Albumin Globulin Albumin/Globulin Ratio Lipase Urine Color YELLOW Urine Clarity CLEAR Urine pH 6.0 Ur Specific [place] 1.025 Urine Protein NEGATIVE Urine Glucose (UA) NEGATIVE Urine Ketones NEGATIVE Urine Occult Blood NEGATIVE Urine Nitrite NEGATIVE Urine Bilirubin NEGATIVE Urine Urobilinogen 0.2 (NORMAL) Ur Leukocyte Esterase NEGATIVE Ur Microscopic Review NOT INDICATED Urine Culture Comments NOT INDICATED Urine HCG, Qual PD MEDICAL DECISION MAKING - ED course Complexity details: reviewed results, d/w patient ED course: 21-year-old female presents emergency department for evaluation 1 episode of vomiting that improved her symptoms this morning. She is free of abdominal pain or fevers. Urine shows no signs of infection and she is not . Screening labs are also unremarkable. Given that no abdominal tenderness was elicited further imaging is deferred. Patient is requesting a note excusing her from work today. She also reports 1 week of frontal sinus pressure without fevers or drainage. I have advised patient that she would benefit from saline nasal rinses consideration of Flonase. Will defer antibiotic given otherwise benign exam. Emergent return precautions discussed. Departure - Departure Disposition: Home, Self Care Clinical Impression: Sinus congestion Vomiting Qualifiers: Vomiting type: unspecified Vomiting Intractability: non-intractable Nausea presence: without nausea Qualified Code(s): R11.11 - Vomiting without nausea Condition: Stable Record reviewed to determine appropriate education?: Yes Instructions: ED Sinusitis No Abx Follow-Up: Ignacia Hagen PA-C [Primary Care Provider] - Prescriptions: Fluticasone [Flonase] 1 sprays ANSON DAILY #16 gm Ondansetron Odt [Zofran] 4 mg TL Q6H PRN #10 tablet PRN Reason: Nausea / Vomiting Comments: AC you are seen in the ER today for evaluation of 1 episode of vomiting as well as sinus congestion. Screening labs are unremarkable. You are not . We did not elicit much abdominal pain and at this time I think that we can defer any imaging. I have prescribed some Zofran to help with nausea and vomiting at home. If at any point you feel that your symptoms are worsening, you develop uncontrolled vomiting, fevers or have suddenly severe or different abdominal pain please return immediately to the ER. We also discussed concern over 1 week of sinus pressure and congestion. I do not think you have a bacterial sinusitis but I do believe you would benefit from daily saline nasal rinses in the shower followed by Flonase nasal spray. If at any point you develop fevers, have facial drainage or swelling please return immediately to the ER for a second evaluation.
[2021-07-22 14:17] LABS: BASOPHILS # (AUTO) 0.1 10^3/uL (0.0-0.1); BASOPHILS % (AUTO) 0.9 %; EOSINOPHILS # (AUTO) 0.3 10^3/uL (0.0-0.7); EOSINOPHILS % (AUTO) 4.9 %; HCT - HEMATOCRIT 45.3 % (37.0-47.0); LYMPHOCYTES # (AUTO) 2.5 10^3/uL (1.5-3.5); MEAN CORPUSCULAR HEMOGLOBIN 28.7 pg (27.0-31.0); MEAN CORPUSCULAR HGB CONC 33.1 g/dL (32.0-36.0); MEAN CORPUSCULAR VOLUME 86.6 fL (81.0-99.0); MEAN PLATELET VOLUME 9.7 fL (7.9-10.8); MONOCYTES # (AUTO) 0.4 10^3/uL (0.0-1.0); MONOCYTES % (AUTO) 6.4 %; NEUTROPHILS # (AUTO) 3.4 10^3/uL (1.5-6.6); NEUTROPHILS % (AUTO) 50.7 %; PLT - PLATELET COUNT 273 10^3/uL (130-450); RED BLOOD COUNT 5.23 10^6/uL (4.20-5.40); RED CELL DISTRIBUTION WIDTH 12.8 % (12.0-15.0); WHITE BLOOD COUNT 6.8 x10^3/uL (4.8-10.8)
[2021-07-22 14:30] LABS: ALBUMIN/GLOBULIN RATIO 1.7 (1.0-2.2); BILIRUBIN,TOTAL 1.1 mg/dL (0.2-1.0); CALCIUM 9.7 mg/dL (8.5-10.3); CREATININE 0.8 mg/dL (0.4-1.0)
[2021-07-22 14:45] LABS: BILIRUBIN,URINE NEGATIVE (NEGATIVE); GLUCOSE, URINE (UA) NEGATIVE (NEGATIVE); KETONES,URINE (UA) NEGATIVE (NEGATIVE); LEUKOCYTE ESTERASE, URINE NEGATIVE (NEGATIVE); NITRITE,URINE NEGATIVE (NEGATIVE); OCCULT BLOOD,URINE NEGATIVE (NEGATIVE); PROTEIN,URINE NEGATIVE (NEGATIVE); UROBILINOGEN,URINE 0.2 (NORMAL) E.U./dL (NORMAL)
[2021-07-22 14:53] LABS: CLARITY,URINE CLEAR (CLEAR); HCG UR QUAL NEGATIVE
== END 2021-07-22 15:49 | disposition home or self-care (01) ==
LOC: ED 13:44
DX: J32.1 Chronic frontal sinusitis (principal); R11.2 Nausea with vomiting, unspecified
CPT/HCPCS: 36415; 80053; 81003; 81025; 83690; 85025; 99283; Q0162; 81001; 87086

== ENCOUNTER 2021-08-15 08:00 | Outpatient (CLI) | payer MEDICAID | END 2021-08-15 23:59 | disposition home or self-care (01) | LOC: LAB.N 08:00 | PROVIDERS: ATTEND Physician Assistant Medical | DX: R05 Cough (principal); Z20.822 Contact with and (suspected) exposure to COVID-19 ==

== ENCOUNTER 2021-08-15 15:57 | Emergency (ER) | payer MEDICAID ==
[2021-08-15 16:06] VITALS: BP 130/87
--- NOTE | 2021-08-15 16:27 | ED Physician Documentation ---
PD HPI URI - Stated complaint Stated Complaint: SOA/CHEST PX/FEVER - Chief complaint Chief Complaint: Resp - History obtained from History obtained from: Patient - History of Present Illness Timing - onset: How many weeks ago (1) Timing duration: Weeks (1) Timing details: Gradual onset Pain level max: 3 Pain level now: 2 Associated symptoms: Fever (subjective), Dry cough, Chest pain (sharp with coughing). No: Chills, Nasal congestion, Rhinorrhea, Sinus pain, Sore throat, Hemoptysis, Dyspnea, NVD, Bilateral edema, Unilateral edema Contributing factors: Sick contact. No: Immunocompromised, Unimmunized, COPD / asthma Improves by: Rest Worsened by: Activity, Breathing - Additional information Additional information: Has not had her covid vaccination. Review of Systems Constitutional: reports: Fever, Chills Nose: denies: Rhinorrhea / runny nose, Congestion Respiratory: reports: Cough. 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 HEENT: None Psych: None Musculoskeletal: Other Derm: None - Past Surgical History Past Surgical History: No General: Cholecystectomy - Present Medications Home Medications: Ambulatory Orders Medication Instructions Recorded Confirmed Acetaminophen [Acetaminophen Extra 500 mg PO Q6HR 04/12/21 04/12/21 Strength] Fluticasone [Flonase] 1 sprays ANSON DAILY #16 gm 07/22/21 Ondansetron Odt [Zofran] 4 mg TL Q6H PRN #10 tablet 07/22/21 - Allergies Allergies/Adverse Reactions: Allergies Allergy/AdvReac Type Severity Reaction Status Date / Time amoxicillin Allergy Respiratory Verified 08/15/21 16:00 - Social History Does the pt smoke?: No Smoking Status: Never smoker Does the pt drink ETOH?: No Does the pt have substance abuse?: No - Immunizations Immunizations are current?: Yes - POLST Patient has POLST: No PD ED PE NORMAL - Vitals Vital signs reviewed: Yes - General General: Alert and oriented X 3, No acute distress - HEENT HEENT: PERRL, Moist mucous membranes - Neck Neck: Supple, no meningeal sign - Cardiac Cardiac: RRR, No murmur, Strong equal pulses - Respiratory Respiratory: No respiratory distress, Clear bilaterally - Abdomen Abdomen: Soft, Non tender, Non distended - Derm Derm: Warm and dry, Other (mild rash upper chest.) - Extremities Extremities: No edema, No calf tenderness / cord - Neuro Neuro: Alert and oriented X 3 - Psych Psych: Normal mood, Normal affect Results - Vitals Vitals: Vital Signs - 24 hr 08/15/21 16:01 Temperature 36.8 C Heart Rate 120 H Respiratory 16 Rate Blood Pressure 130/87 H O2 Saturation 98 Oxygen O2 Source Room air - Rads (name of study) cxr Radiology: Final report received, EMP read contemporaneously, See rad report (Bilateral interstitial type infiltrates are seen. Please consider COVID pneumonia. ) PD MEDICAL DECISION MAKING - ED course Complexity details: reviewed results, re-evaluated patient, considered differential, d/w patient ED course: 21-year-old female with what appears to be Covid pneumonia. No hypoxia. No respiratory distress. No wheezing. We will continue supportive care and have her follow-up with her doctor for further care. The Covid test was sent from the urgent care today. Patient counseled regarding signs and symptoms for which I believe and urgent re-evaluation would be necessary. Patient with good understanding of and agreement to plan and is comfortable going home at this time This document was made in part using voice recognition software. While efforts are made to proofread this document, sound alike and grammatical errors may occur. Departure - Departure Disposition: 01 Home, Self Care Clinical Impression: Viral URI Condition: Good Instructions: ED Viral Syndrome Follow-Up: Ignacia Hagen PA-C [Primary Care Provider] - Within 1 week Comments: Your x-ray is consistent with Covid today. Please follow-up with your doctor for further care. You would be a candidate for monoclonal antibody therapy, this is only available when the pharmacist is available. This would be during the daytime 9a-3p. There is a national shortage of monoclonal antibodies, so call first to ensure they are available. You have a Covid test pending. You need to self quarantine until the result is done and negative. The results should be done in 24-48 hours. We will call with a positive result, the fastest way to get a negative result for confirmation though is to go to the hospital website at [email or web address], click on the my [facility] tab and sign up for the patient portal. If any of your friends and/or family need to be tested, they can call the hospital at [phone] for an appointment to have their Covid test. Discharge Date/Time: 08/15/21 17:22
--- NOTE | 2021-08-15 16:55 | XRAY Report ---
PROCEDURE: Chest 1 View X-Ray INDICATIONS: cough TECHNIQUE: One view of the chest was acquired. COMPARISON: None FINDINGS: Surgical changes and devices: None. Lungs and pleura: No pleural effusions or pneumothorax. Patchy bilateral interstitial type infiltra kristian are seen. Mediastinum: Mediastinal contours appear normal. Heart size is normal. Bones and chest wall: No suspicious bony lesions. Overlying soft tissues appear unremarkable. IMPRESSION: Bilateral interstitial type infiltrates are seen. Please consider COVID pneumonia. Reviewed by: Hebert Maxwell MD on 08/15/2021 3:54 PM [facility] Approved by: Hebert Maxwell MD on 08/15/2021 3:54 PM [facility] Station ID: [id number]
== END 2021-08-15 17:22 | disposition home or self-care (01) ==
LOC: ED 15:57
DX: J06.9 Acute upper respiratory infection, unspecified (principal); R06.02 Shortness of breath; R07.9 Chest pain, unspecified; R50.9 Fever, unspecified; R91.8 Other nonspecific abnormal finding of lung field
CPT/HCPCS: 99282; 99283

== ENCOUNTER 2021-09-30 08:00 | Outpatient (CLI) | payer MEDICAID | END 2021-09-30 23:59 | disposition home or self-care (01) | LOC: LAB.N 08:00 | PROVIDERS: ATTEND Family Medicine | DX: Z20.822 Contact with and (suspected) exposure to COVID-19 (principal) ==

== ENCOUNTER 2022-01-12 08:00 | Outpatient (CLI) | payer MEDICAID ==
[2022-01-12 23:59] LABS: CHLAMYDIA TRACHOMATIS DNA NEGATIVE (NEGATIVE); NEISSERIA GONORRHOEAE DNA NEGATIVE (NEGATIVE); TRICHOMONAS VAGINALIS DNA NEGATIVE (NEGATIVE)
== END 2022-01-12 23:59 | disposition home or self-care (01) ==
LOC: LAB.WC 08:00
PROVIDERS: ATTEND Nurse Practitioner Obstetrics & Gynecology
DX: Z11.3 Encounter for screening for infections with a predominantly sexual mode of transmission (principal)
CPT/HCPCS: 87491; 87591; 87661

== ENCOUNTER 2022-01-22 14:03 | Outpatient (CLI) | payer OTHER, MEDICAID ==
--- NOTE | 2022-01-22 16:20 | XRAY Report ---
PROCEDURE: Knee 3 View RT INDICATIONS: KNEE SPRAIN, RIGHT TECHNIQUE: 3 views of the right knee(s) were acquired. COMPARISON: None. FINDINGS: Bones: No fractures or dislocations. No suspicious bony lesions. The knee joint spaces are relative ly well-preserved. Soft tissues: No joint effusion. No suspicious soft tissue calcifications. IMPRESSION: The superior joint effusion is seen. If it would be helpful for clinical management decision making, please consider a dedicated, schedule d knee MRI for further evaluation (assuming that there is no contraindication). Reviewed by: Hebert Maxwell MD on 01/22/2022 3:18 PM [facility] Approved by: Hebert Maxwell MD on 01/22/2022 3:18 PM [facility] Station ID: [id number]
== END 2022-01-22 23:59 | disposition home or self-care (01) ==
LOC: DI.N 14:03
PROVIDERS: ATTEND Physician Assistant
DX: S83.401A Sprain of unspecified collateral ligament of right knee, initial encounter (principal); M25.461 Effusion, right knee

== ENCOUNTER 2022-04-06 08:00 | Outpatient (CLI) | payer MEDICAID | END 2022-04-07 14:01 | disposition home or self-care (01) | LOC: LAB.N 08:00 | PROVIDERS: ATTEND Registered Nurse | DX: R05.9 Cough, unspecified (principal); Z20.822 Contact with and (suspected) exposure to COVID-19 ==

== ENCOUNTER 2022-10-04 09:46 | Outpatient (CLI) | payer MEDICAID ==
--- NOTE | 2022-10-04 17:37 | XRAY Report ---
PROCEDURE: Cervical Spine 2 View INDICATIONS: CERVICAL NEUROPATHY TECHNIQUE: 3 view(s) of the cervical spine were acquired. COMPARISON: None. FINDINGS: Bones: No fractures or dislocations to the T1 level. Mild reversal of normal cervical lordosis is se en. The lateral masses of C1 appear intact on the odontoid view. No suspicious bony lesions. Soft tissues: No prevertebral soft tissue swelling. IMPRESSION: Mild reversal of normal cervical lordosis. No fracture or dislocation. No significant de generative disc disease. Reviewed by: Cipriano Singh MD on 10/04/2022 5:36 PM PST Approved by: Cipriano Singh MD on 10/04/2022 5:36 PM PST Station ID: [id number]
== END 2022-10-04 09:47 | disposition home or self-care (01) ==
LOC: DI.N 09:46
PROVIDERS: ATTEND Family Medicine
DX: G58.9 Mononeuropathy, unspecified (principal)

== ENCOUNTER 2023-04-04 17:02 | Outpatient (CLI) | payer MEDICAID ==
--- NOTE | 2023-04-05 14:53 | XRAY Report ---
PROCEDURE: Elbow 2 View LT INDICATIONS: ELBOW PAIN LEFT TECHNIQUE: 2 views of the elbow were acquired. COMPARISON: None. FINDINGS: Bones: No fractures or dislocations. No suspicious bony lesions. Soft tissues: No effusion. No suspicious soft tissue calcifications. IMPRESSION: No acute bony abnormality. If pain persists with conservative management, consider repeat radiographs in 10-14 days or cross-sectional imaging. Reviewed by: Josh Cast MD on 04/05/2023 2:51 PM PDT Approved by: Josh Cast MD on 04/05/2023 2:51 PM PDT Station ID: [id number]
== END 2023-04-04 17:03 | disposition home or self-care (01) ==
LOC: DI 17:02
PROVIDERS: ATTEND Family Medicine
DX: M25.522 Pain in left elbow (principal)